=== PATIENT | female | born 1940 | race Two or more races ===

== ENCOUNTER → 2016-05-05 | Outpatient (CLI) | payer MEDICARE, OTHER ==
--- NOTE | 2016-05-06 07:42 | REP ---
Right shoulder series: Three views. History: Pain in the right shoulder. Findings: Right glenohumeral and acromioclavicular joints are normally aligned. There is acromion process and AC joint spurring. Subcortical cyst formation is seen in the superolateral humeral head. There is diffuse osteopenia. Early glenohumeral spurring is seen. Impression: AC and glenohumeral joint osteoarthritic spurring. Subcortical cyst formation in the humeral head and acromion process spurring may reflect impingement. Diffuse osteopenia. No acute bony abnormality. Signed by David Shaver MD 05/06/2016 08:42 A
--- NOTE | 2016-05-06 07:43 | REP ---
Right humerus: Three views. History: Pain in the right upper arm. Findings: Three views of the right humerus demonstrate diffuse osteopenia. Subcortical cyst formation is seen in the humeral head. Degenerative changes are seen at the shoulder. Impression: No acute abnormality. Signed by David Shaver MD 05/06/2016 08:42 A
== END ==
LOC: M LRY 14:52
PROVIDERS: ATTEND Physician Assistant
DX: M25.511 Pain in right shoulder (principal)

== ENCOUNTER → 2016-08-07 | Outpatient (REF) | payer MEDICARE, BC ==
[2016-08-07 20:25] LABS: ALBUMIN/GLOBULIN RATIO 1.33 (1.00-1.93); BILIRUBIN,TOTAL 0.4 MG/DL (0.2-1.0); CALCIUM LEVEL 8.5 MG/DL (8.8-10.2); CREATININE FOR GFR 1.2 MG/DL (0.55-1.02); GLOMERULAR FILTRATION RATE 46.8 (>39); POTASSIUM SERUM 3.6 MEQ/L (3.5-5.1)
[2016-08-07 20:31] LABS: FOLATE > 24.0 NG/ML (>5.4); VITAMIN B12 LEVEL 602 PG/ML (247-911)
[2016-08-07 20:48] LABS: MEAN CORPUSCULAR HEMOGLOBIN 30.6 pg (27.0-33.0); MEAN CORPUSCULAR HGB CONC 33.4 g/dl (32.0-36.5); MEAN CORPUSCULAR VOLUME 91.7 fl (80.0-96.0); RED CELL DISTRIBUTION WIDTH 12.6 % (11.5-14.5)
[2016-08-08 11:30] LABS: FREE T4 0.93 NG/DL (0.76-1.46)
== END ==
LOC: M SFHCLERA 14:54
PROVIDERS: ATTEND Family Medicine
DX: I25.10 Atherosclerotic heart disease of native coronary artery without angina pectoris (principal); R00.1 Bradycardia, unspecified; R41.3 Other amnesia; Z79.899 Other long term (current) drug therapy; Z86.79 Personal history of other diseases of the circulatory system
CPT/HCPCS: 80053; 80061; 81001; 82607; 82746; 83036; 84439; 84443; 85027; 85610; 86780; G0463

== ENCOUNTER → 2016-08-29 | Outpatient (REF) | payer MEDICARE, BC | LOC: M SFHCLERA 17:15 | PROVIDERS: ATTEND Family Medicine | DX: K92.1 Melena (principal); I25.10 Atherosclerotic heart disease of native coronary artery without angina pectoris; Z00.00 Encounter for general adult medical examination without abnormal findings ==

== ENCOUNTER → 2016-12-07 | Outpatient (CLI) | payer MEDICARE, BC ==
--- NOTE | 2016-12-07 15:32 | REP ---
MRI LEFT SHOULDER: TECHNIQUE: Axial T2 fat sat, gradient echo, sagittal oblique T2 fat sat, coronal oblique T1, T2 fat sat. There is ill-defined high signal in the supraspinatus tendon without a discrete rotator cuff tendon tear. Findings are compatible with tendinopathy/tendinitis. There are moderate hypertrophic degenerative changes of the acromioclavicular joint with subchondral marrow edema and mild fluid in the joint. Acromion is type 2. Biceps tendon is within the bicipital groove with moderate surrounding fluid possibly indicating tenosynovitis. There is no Hill-Sachs deformity. The deltoid muscle demonstrates no abnormal signal. There is fraying of the biceps labral complex. There is also diffuse fraying of the superior and anterior labrum. Tiny subchondral cystic changes are seen in the humeral head. There is a moderate joint effusion. There is also moderate chondromalacia at the glenohumeral joint. Ill-defined soft tissue in the subcoracoid region may represent synovial thickening. IMPRESSION: Supraspinatus tendinopathy/tendinitis without evidence of rotator cuff tear. Moderate hypertrophic degenerative changes of the acromioclavicular joint. There is diffuse fraying of the biceps labral complex, superior labrum and anterior labrum. Moderate joint effusion. Moderate chondromalacia at the glenohumeral joint. Synovial thickening in the subcoracoid region. Signed by Everardo Irizarry MD 12/10/2016 09:53 A
== END ==
LOC: M RAD 13:13
PROVIDERS: ATTEND Family Medicine
DX: M25.512 Pain in left shoulder (principal); M75.02 Adhesive capsulitis of left shoulder

== ENCOUNTER → 2017-06-05 | Outpatient (REF) | payer MEDICARE, BC ==
[2017-06-05 16:39] LABS: HEMATOCRIT 40.6 % (36.0-47.0); HEMOGLOBIN 13.7 g/dl (12.0-15.5); MEAN CORPUSCULAR HEMOGLOBIN 29.9 pg (27.0-33.0); MEAN CORPUSCULAR HGB CONC 33.7 g/dl (32.0-36.5); MEAN CORPUSCULAR VOLUME 88.6 fl (80.0-96.0); PLATELET COUNT, AUTOMATED 212 10^3/uL (150-450); RED BLOOD COUNT 4.58 10^6/uL (4.00-5.40); RED CELL DISTRIBUTION WIDTH 12.1 % (11.5-14.5); WHITE BLOOD COUNT 8.4 10^3/uL (4.0-10.0)
[2017-06-05 17:09] LABS: CHOLESTEROL LEVEL 162 MG/DL (<200); CHOLESTEROL RISK RATIO 2.842 (<5); HDL CHOLESTEROL 57 MG/DL (>40); LDL CHOLESTEROL 75.6 MG/DL (<100); NON-HDL-C 105 MG/DL; TRIGLYCERIDES LEVEL 147 MG/DL (<150)
[2017-06-05 17:16] LABS: ANION GAP 10 MEQ/L (8-16); BLOOD UREA NITROGEN 20 MG/DL (7-18); CALCIUM LEVEL 9.3 MG/DL (8.8-10.2); CARBON DIOXIDE LEVEL 29 MEQ/L (21-32); CHLORIDE LEVEL 104 MEQ/L (98-107); CREATININE FOR GFR 1.39 MG/DL (0.55-1.30); GLOMERULAR FILTRATION RATE 39.3 (>39); GLUCOSE, FASTING 76 MG/DL (70-100); POTASSIUM SERUM 3.6 MEQ/L (3.5-5.1); SODIUM LEVEL 143 MEQ/L (136-145)
== END ==
LOC: M SFHCLERA 13:56
DX: F32.9 Major depressive disorder, single episode, unspecified (principal); Z95.5 Presence of coronary angioplasty implant and graft; G89.4 Chronic pain syndrome; I25.10 Atherosclerotic heart disease of native coronary artery without angina pectoris; I10 Essential (primary) hypertension
CPT/HCPCS: 84443

== ENCOUNTER → 2017-07-22 | Outpatient (REF) | payer MEDICARE, BC ==
[2017-07-22 17:36] LABS: ANION GAP 5 MEQ/L (8-16); BLOOD UREA NITROGEN 19 MG/DL (7-18); CALCIUM LEVEL 9.1 MG/DL (8.8-10.2); CARBON DIOXIDE LEVEL 29 MEQ/L (21-32); CHLORIDE LEVEL 109 MEQ/L (98-107); CREATININE FOR GFR 1.16 MG/DL (0.55-1.30); GLOMERULAR FILTRATION RATE 48.5 (>39); GLUCOSE, FASTING 87 MG/DL (70-100); POTASSIUM SERUM 4.6 MEQ/L (3.5-5.1); SODIUM LEVEL 143 MEQ/L (136-145)
== END ==
LOC: M SFHCLERA 12:21
DX: I10 Essential (primary) hypertension (principal)
CPT/HCPCS: 80048

== ENCOUNTER → 2018-01-28 | Outpatient (REF) | payer MEDICARE, BC ==
[2018-01-28 18:24] LABS: CALCIUM LEVEL 9.3 MG/DL (8.8-10.2); CREATININE FOR GFR 1.4 MG/DL (0.55-1.30); POTASSIUM SERUM 3.9 MEQ/L (3.5-5.1)
== END ==
LOC: M SFHCLERA 13:40
PROVIDERS: ATTEND Family Medicine
DX: I10 Essential (primary) hypertension (principal)
CPT/HCPCS: 80048; G0463

== ENCOUNTER 2018-06-07 22:12 | Emergency (ER) | payer MEDICARE, BC ==
[~2018-06-07] VITALS: Ht 162.6 cm; Wt 77.7 kg
[2018-06-07] MEDS ORDERED: NITROGLYCERIN 0.4 MG SUBL TABLET SL PRN (23:00)
[2018-06-07 23:05] LABS: BASO # 0.1 10^3/uL (0.0-0.2); BASO % 0.8 % (0.0-1.0); EOS # 2.3 10^3/uL (0.0-0.50); HEMATOCRIT 35.5 % (36.0-47.0); HEMOGLOBIN 12.5 g/dl (12.0-15.5); LYMPH # 2.4 10^3/uL (1.5-4.5); LYMPH % 24.5 % (24.0-44.0); MEAN CORPUSCULAR HEMOGLOBIN 30.3 pg (27.0-33.0); MEAN CORPUSCULAR HGB CONC 35.2 g/dl (32.0-36.5); MONO # 0.6 10^3/uL (0.0-0.8); NEUTROPHILS # 4.4 10^3/uL (1.8-7.7); NEUTROPHILS % 44.7 % (36.0-66.0); PLATELET COUNT, AUTOMATED 174 10^3/uL (150-450); RED BLOOD COUNT 4.13 10^6/uL (4.00-5.40); WHITE BLOOD COUNT 9.8 10^3/uL (4.0-10.0)
[2018-06-07 23:18] LABS: BLOOD UREA NITROGEN 28 MG/DL (7-18); CALCIUM LEVEL 8.9 MG/DL (8.8-10.2); CARBON DIOXIDE LEVEL 26 MEQ/L (21-32); CHLORIDE LEVEL 102 MEQ/L (98-107); CPK CREATINE PHOSPHOKINASE 95 U/L (26-192); CREATININE FOR GFR 1.69 MG/DL (0.55-1.30); GLOMERULAR FILTRATION RATE 31.3 (>39); GLUCOSE, FASTING 106 MG/DL (70-100); MB/CK RELATIVE INDEX 1.05 (< OR =4); NT-PRO BNP 146 PG/ML (<450); POTASSIUM SERUM 3.5 MEQ/L (3.5-5.1); SODIUM LEVEL 138 MEQ/L (136-145); TROPONIN I < 0.02 NG/ML (< 0.10)
[2018-06-07] MEDS ORDERED: LORazepam 2 MG/ML VIAL (J2060) IV STA (23:22)
[2018-06-07 23:28] LABS: EOS % 23.7 % (0.0-3.0)
[2018-06-08] MEDS ORDERED: CENT1TAB PO (01:11)
[2018-06-08] MEDS ORDERED: FURO40TA2 PO (01:11)
[2018-06-08] MEDS ORDERED: MIRT1TAB16 PO (01:11)
[2018-06-08] MEDS ORDERED: PANT40TA3 PO (01:11)
[2018-06-08] MEDS ORDERED: LOSA100T8 PO (01:11)
[2018-06-08] MEDS ORDERED: IRON240T PO (01:11)
[2018-06-08] MEDS ORDERED: NITR0.3S SL (03:09)
[2018-06-08] MEDS ORDERED: AMLO5TAB6 PO (03:09)
[2018-06-08] MEDS ORDERED: SERT25TA85 PO (03:09)
[2018-06-08] MEDS ORDERED: ASPI81TA85 PO (03:09)
[2018-06-08] MEDS ORDERED: DICL1GEL3 TOP (03:09)
[2018-06-08 05:41] LABS: CK-MB VALUE MASS < 1.0 NG/ML (<3.6); CPK CREATINE PHOSPHOKINASE 73 U/L (26-192); MB/CK RELATIVE INDEX 1.36 (< OR =4); TROPONIN I 0.05 NG/ML (< 0.10)
[2018-06-08 06:15] VITALS: BP 166/73
--- NOTE | 2018-06-08 09:49 | REP ---
REASON: Chest pain. COMPARISON: None. The technique utilized in obtaining the radiograph has magnified the cardiac silhouette and accentuated the interstitial markings. There is cardiomegaly which is somewhat flask-shaped. I cannot rule out the possibility of a pericardial effusion. The interstitial markings are diffusely increased and there is mild pulmonary vascular redistribution accentuated by technique. There are no patchy opacities or pleural effusions. The osseous structures are within normal limits. IMPRESSION: Cardiomegaly and possible interstitial edema as described above. Correlate clinically. Electronically Signed by Twin Walden DO 06/08/2018 01:46 P
--- NOTE | 2018-06-08 20:56 | ECGEPIP ---
Stationary ECG Study [facility] - ED Test Date: 2018-06-07 Pat Name: JOSE CARDENAS Department: Room: - Gender: F Information Technology Intern: : 1940 Requested By: DANIELLE Haddad Order Number: [id number] Reading MD: Beverly Shah Measurements Intervals [place] Rate: 68 P: 78 [place]: 164 QRS: 65 QRSD: 106 T: 69 QT: 428 QTc: 457 Interpretive Statements SINUS RHYTHM WITH OCCASIONAL VENTRICULAR PREMATURE COMPLEXES MINIMAL ST DEPRESSION NO PRIOR FOR COMPARISON Electronically Signed On 06-08-2018 20:55:44 EDT by Beverly Shah
--- NOTE | 2018-06-08 20:57 | ECGEPIP ---
Stationary ECG Study [facility] - ED Test Date: 2018-06-08 Pat Name: JOSE CARDENAS Department: Room: - Gender: F Sanitary Plumber: PMO : 1940 Requested By: DANIELLE Haddad Order Number: [id number] Reading MD: Beverly Shah Measurements Intervals [place] Rate: 60 P: 61 [place]: 175 QRS: 21 QRSD: 107 T: 24 QT: 451 QTc: 451 Interpretive Statements SINUS RHYTHM NSTTW ABNORMALITY SIMILAR 22:36 Electronically Signed On 06-08-2018 20:57:32 EDT by Beverly Shah
--- NOTE | 2018-06-09 07:49 | ED PDOC ---
Post-Departure Follow-Up dr shah faxed formal report of cxr for fu Reina Kenny MD Jun 09, 2018 07:48
== END 2018-06-08 06:28 | disposition home or self-care (01) ==
LOC: M ED 22:12 → EDBD 22:12 → M ED 06-08 06:28
DX: F41.0 Panic disorder [episodic paroxysmal anxiety] (principal); R07.89 Other chest pain; R06.02 Shortness of breath; I25.10 Atherosclerotic heart disease of native coronary artery without angina pectoris; E78.2 Mixed hyperlipidemia; I10 Essential (primary) hypertension; K21.9 Gastro-esophageal reflux disease without esophagitis; Z87.891 Personal history of nicotine dependence; Z82.49 Family history of ischemic heart disease and other diseases of the circulatory system; Z88.5 Allergy status to narcotic agent; Z91.048 Other nonmedicinal substance allergy status; Z95.5 Presence of coronary angioplasty implant and graft; Z96.653 Presence of artificial knee joint, bilateral; Z90.49 Acquired absence of other specified parts of digestive tract; Z79.899 Other long term (current) drug therapy
CPT/HCPCS: 71045; 80048; 82550; 82553; 83880; 84484; 85025; 93005; 93041; 94760; 96374; 99285; J2060

== ENCOUNTER → 2018-06-11 | Outpatient (REF) | payer MEDICARE, BC ==
[~2018-06-11] MED LIST: AMLO5TAB6 PO; ASPI81TA85 PO; CENT1TAB PO; DICL1GEL3 TOP; FURO40TA2 PO; IRON240T PO; LOSA100T8 PO; MIRT1TAB16 PO; NITR0.3S SL; PANT40TA3 PO; SERT25TA85 PO
[2018-06-11 11:34] LABS: CALCIUM LEVEL 9.4 MG/DL (8.8-10.2); CHOLESTEROL RISK RATIO 3.052 (<5); CREATININE FOR GFR 1.78 MG/DL (0.55-1.30); GLOMERULAR FILTRATION RATE 29.5 (>39); POTASSIUM SERUM 3.5 MEQ/L (3.5-5.1); THYROID STIMULATING HORMONE 1.81 uIU/ML (0.358-3.740)
[2018-06-11 12:32] LABS: HEMOGLOBIN A1c 5.9 %
== END ==
LOC: M SFHCLERA 08:11
PROVIDERS: ATTEND Family Medicine
DX: I25.10 Atherosclerotic heart disease of native coronary artery without angina pectoris (principal); N18.3 Chronic kidney disease, stage 3 (moderate); I13.10 Hypertensive heart and chronic kidney disease without heart failure, with stage 1 through stage 4 chronic kidney disease, or unspecified chronic kidney disease; F41.0 Panic disorder [episodic paroxysmal anxiety]; F33.1 Major depressive disorder, recurrent, moderate
CPT/HCPCS: 80048; 80061; 83036; 84443; G0463

== ENCOUNTER → 2018-07-10 | Outpatient (REF) | payer MEDICARE, BC ==
[2018-07-10 12:10] LABS: CALCIUM LEVEL 9.5 MG/DL (8.8-10.2); CREATININE FOR GFR 1.95 MG/DL (0.55-1.30); GLOMERULAR FILTRATION RATE 26.6 (>39); POTASSIUM SERUM 3.6 MEQ/L (3.5-5.1)
== END ==
LOC: M SFHCLERA 09:56
PROVIDERS: ATTEND Family Medicine
DX: N18.3 Chronic kidney disease, stage 3 (moderate) (principal)
CPT/HCPCS: 80048; G0463

== ENCOUNTER → 2018-07-21 | Outpatient (REF) | payer MEDICARE, BC ==
[2018-07-21 12:32] LABS: CALCIUM LEVEL 9.2 MG/DL (8.8-10.2); CREATININE FOR GFR 1.55 MG/DL (0.55-1.30); GLOMERULAR FILTRATION RATE 34.6 (>39); POTASSIUM SERUM 4.2 MEQ/L (3.5-5.1)
== END ==
LOC: M SFHCLERA 09:50
PROVIDERS: ATTEND Family Medicine
DX: N18.3 Chronic kidney disease, stage 3 (moderate) (principal)

== ENCOUNTER → 2018-09-17 | Outpatient (CLI) | payer MEDICARE, BC ==
--- NOTE | 2018-09-17 11:33 | REP ---
Clinical: Hypertension and chronic medical renal disease. Technique: Irizarry scale and color Doppler evaluation of the kidneys and renal vasculature using curved array transducer. Findings: The kidneys are essentially normal in contour size and echogenicity and reniform shape without hydronephrosis, nephrolithiasis, cystic or renal mass lesion. Right kidney measures 10.3 x 4.9 x 3.5 cm . Left kidney measures 9.2 x 5.0 x 5.3 cm . Bladder is incompletely distended and grossly normal by current evaluation. Color Doppler evaluation of the renal vasculature demonstrates normal arterial wave patterns, velocities, renal aortic ratios, and acceleration time. Resistive indices are mildly elevated bilaterally and consistent with small vessel disease. No sonographic evidence for renal arterial stenosis noted. Renal vein is patent. Right Kidney: Peak arterial velocity: 154 cm/sec . Renal aortic ratio: One point a . Resistive indices: 0.79 - 0.81 . Acceleration times: 0.046 - 0.048 . Left kidney: Peak arterial velocity: 131 cm/sec . Renal aortic ratio: 1.5 . Resistive indices: 0.79 - 0.86 . Acceleration times: 0.036 - 0.048 . Impression: 1. No sonographic evidence for renal arterial stenosis. 2. Findings consistent with small vessel disease related to chronic medical renal disease. Electronically Signed by Jw Moore MD 09/17/2018 11:25 A
== END ==
LOC: M RAD 10:27
PROVIDERS: ATTEND Internal Medicine Nephrology
DX: N18.3 Chronic kidney disease, stage 3 (moderate) (principal); I15.0 Renovascular hypertension

== ENCOUNTER → 2018-09-25 | Outpatient (REF) | payer MEDICARE, BC ==
[2018-09-25 17:41] LABS: CALCIUM LEVEL 9.6 MG/DL (8.8-10.2); CREATININE FOR GFR 1.51 MG/DL (0.55-1.30); GLOMERULAR FILTRATION RATE 35.7 (>39); POTASSIUM SERUM 4.1 MEQ/L (3.5-5.1)
== END ==
LOC: M SFHCLERA 11:58
PROVIDERS: ATTEND Family Medicine
DX: I10 Essential (primary) hypertension (principal)
CPT/HCPCS: 80048; G0463

== ENCOUNTER → 2019-01-06 | Outpatient (REF) | payer MEDICARE, BC ==
[2019-01-06 16:40] LABS: BASO # 0.1 10^3/uL (0.0-0.2); BASO % 0.9 % (0.0-1.0); EOS # 2.3 10^3/uL (0.0-0.5); HEMATOCRIT 37.7 % (36.0-47.0); HEMOGLOBIN 12.5 g/dl (12.0-15.5); LYMPH # 1.8 10^3/uL (1.5-5.0); LYMPH % 19.2 % (24.0-44.0); MEAN CORPUSCULAR HEMOGLOBIN 30.2 pg (27.0-33.0); MEAN CORPUSCULAR HGB CONC 33.2 g/dl (32.0-36.5); MEAN CORPUSCULAR VOLUME 91.1 fl (80.0-96.0); MONO # 0.5 10^3/uL (0.0-0.8); MONO % 5.3 % (0.0-5.0); NEUTROPHILS # 4.6 10^3/uL (1.5-8.5); NEUTROPHILS % 49.3 % (36.0-66.0); PLATELET COUNT, AUTOMATED 201 10^3/uL (150-450); RED BLOOD COUNT 4.14 10^6/uL (4.00-5.40); WHITE BLOOD COUNT 9.3 10^3/uL (4.0-10.0)
[2019-01-06 16:46] LABS: ALBUMIN 4.3 GM/DL (3.2-5.2); CALCIUM LEVEL 9.5 MG/DL (8.8-10.2); CREATININE FOR GFR 1.62 MG/DL (0.55-1.30); GLOMERULAR FILTRATION RATE 32.9 (>39); PHOSPHORUS LEVEL 3.6 MG/DL (2.5-4.9); POTASSIUM SERUM 3.6 MEQ/L (3.5-5.1)
[2019-01-06 17:08] LABS: HEMOGLOBIN A1c 5.4 %
== END ==
LOC: M SFHCLERA 12:26
PROVIDERS: ATTEND Family Medicine
DX: E61.1 Iron deficiency (principal); N18.3 Chronic kidney disease, stage 3 (moderate); R73.03 Prediabetes; Z23 Encounter for immunization
CPT/HCPCS: 80069; 82728; 83036; 83550; 85025; 90732; G0009; G0463

== ENCOUNTER → 2019-03-21 | Outpatient (CLI) | payer MEDICARE, BC ==
--- NOTE | 2019-03-21 13:33 | REP ---
PA and lateral chest: Comparison is the portable chest dated 06/07 2018. The lung jack are clear. The cardiac size is upper normal, unchanged. The jennifer, mediastinum, skeletal structures are unremarkable. Impression: No acute cardiopulmonary findings. Electronically Signed by Everardo Norman MD 03/21/2019 01:24 P
== END ==
LOC: M LRY 13:05
PROVIDERS: ATTEND Nurse Practitioner Family
DX: R06.89 Other abnormalities of breathing (principal)
CPT/HCPCS: 71046; G0463